=== PATIENT | female | born 1980 | race Caucasian/White ===

== ENCOUNTER 2023-08-21 13:29 | Emergency (ER) | payer MEDICAID, SELFPAY ==
--- NOTE | 2023-08-21 13:30 | DI.RAD_ITS ---
Exam(s) XR THUMB LT EXAM: XR THUMB LT EXAM DATE/TIME: CLINICAL HISTORY: fall, pain. TECHNIQUE: 2D digital imaging was performed of the left finger. Three views were obtained. PA/AP, oblique, and lateral views were obtained. COMPARISON: None. FINDINGS: BONES: No acute fracture is present. No bony destructive lesion is seen. JOINTS: No dislocation is present. SOFT TISSUE: Normal. IMPRESSION: No evidence of acute fracture or dislocation. DATA REPOSITORY: RADIATION DOSE DELIVERED:
[2023-08-21 13:35] VITALS: BP 95/57; PULSE 61; RESP 18; TEMP 37; O2SAT 100
--- NOTE | 2023-08-21 13:41 | ED.GENADUL_ITS ---
Discharge Plan Disposition Patient Disposition: Home Condition: Stable Discharge Details Clinical Impression: Contusion of left thumb Primary Care Provider: Unknown,Unknown ED Provider: Moris Solomon Home Meds and New Rx's Prescriptions: No Action No Known Home Meds Discharge Instructions Instructions: Contusion in Adults (ED) Additional Instructions: if pain is not improving within a week follow-up with your primary care provider wear the splint as needed for comfort Return to the emergency department if you are having severe worsening pain or feel more ill. HPI General Mode of arrival: ambulatory . Date/Time Provider Initiated Documentation: 08/21/23 13:38 . Limitations to Documentation: no limitations . Information obtained by: patient . History of Present Illness 43 year old F presents to the emergency department with the chief complaint of left thumb injury, described as moderate, Quality is described as aching, and is localized to the left and upper extremity. Patient reports no radiation. Patient started experiencing this hour(s) (1) and it has been constant. No relieving factors improve symptom(s), No exacerbating factors reported . Patient notes no other symptoms.. Patient did receive the following treatments prior to arrival, none Related Data Home Medications Medication Instructions Recorded Confirmed Unknown [No Known Home Meds] 08/21/23 08/21/23 Allergies Allergy/AdvReac Type Severity Reaction Status Date / Time latex Allergy Unknown SKIN RASH Unverified 08/21/23 13:38 General Stated Complaint: Orthopedic MARITZA: 4 Review of Systems All systems reviewed & are unremarkable except as noted in HPI and below Constitutional Constitutional: Denies chills, Denies fever(s) and Denies weakness Cardiovascular Cardiovascular: Denies chest pain and Denies dyspnea Respiratory Respiratory: Denies cough and Denies dyspnea Gastrointestinal Gastrointestinal: Denies abdominal pain, Denies nausea and Denies vomiting Musculoskeletal Musculoskeletal: Denies joint swelling Neurologic Neurologic: Denies weakness Exam Const General: no acute distress Orientation: alert HENMT Head: normal to inspection Ears: external ears normal General nose exam: external nose normal Mouth: moist mucous membranes Eyes General: appearance normal, both eyes and all related structures Neck Neck: normal visual inspection Resp Effort & Inspection: normal respiratory effort and able to speak in complete sentences Cardio Rate: regular rate Skin General skin exam: no rashes or lesions noted Neuro General: patient alert and patient oriented x3 Extrem General: full ROM and capillary refill normal Psych Mental Status: mental status grossly normal Course Vital Signs Vital signs: Vital Signs Temperature 37.0 C 08/21/23 13:35 Pulse 61 08/21/23 13:35 Respiratory Rate 18 08/21/23 13:35 Blood Pressure 95/57 L 08/21/23 13:35 Pulse Oximetry 100 08/21/23 13:35 Temperature 37.0 C 08/21/23 13:35 Pulse 61 08/21/23 13:35 Respiratory Rate 18 08/21/23 13:35 Blood Pressure 95/57 L 08/21/23 13:35 Pulse Oximetry 100 08/21/23 13:35 Medical Decision Making 43-year-old female who denies any significant past medical history comes in with left thumb injury. She says she was holding a heavy power saw and slipped on ice in the side landed on her left thumb. He denies hitting her head or loss of consciousness. Has no headaches, neck pain, back pain, chest or abdomen pain. She localizes the pain to the distal left thumb has some swelling, no subungual hematoma currently. Has full range of motion of the thumb, normal sensation and cap refill. Has no tenderness elsewhere in the hand and no pain or tenderness in the wrist. Suspect contusion but will obtain x-rays to evaluate for fracture. Differential Diagnosis Differential Diagnosis: Fracture, contusion Imaging Data Radiologic Study: Attestation: I personally reviewed and interpreted this imaging study as follows: Imaging: X-Ray Radiologist's impression: No acute findings Quality:SDOH Health Related Social Needs: No Data to Display PFSH All Active Problems (Updated 08/21/23 @ 15:00 by Moris Solomon MD) Contusion of left thumb (Acute) Social History Smoking/Tobacco Use Status: Never Smoking risk assessment performed?: Yes Substance use type: does not use Housing: house Do you feel safe at home: Yes Do you feel safe in your relationship?: Yes
--- NOTE | 2023-08-21 15:18 | DI.VRAD_ITS ---
PROCEDURE INFORMATION: Exam: XR Left Finger(s) Exam date and time: 08/21/2023 2:25 PM Age: 43 years old Clinical indication: Other: Fall, pain TECHNIQUE: Imaging protocol: Radiologic exam of the left fingers. Views: Minimum 2 views. COMPARISON: No relevant prior studies available. FINDINGS: Bones/joints: Normal. No acute fracture or dislocation. Soft tissues: There is soft tissue swelling noted. IMPRESSION: No acute fracture or dislocation. Dictated and Authenticated by: Caroline Reddy MD. Ordering:CLAUDIA Subramanian MD
== END 2023-08-21 15:50 | disposition home or self-care (01) ==
PROVIDERS: Emergency Provider Emergency Medicine
DX: W00.0XXA Fall on same level due to ice and snow, initial encounter; S60.012A Contusion of left thumb without damage to nail, initial encounter
CPT/HCPCS: 29125; 99283; 73140; 99284

== ENCOUNTER 2024-01-27 17:50 | Emergency (ER) | payer MEDICAID, SELFPAY ==
[2024-01-27 17:55] VITALS: BP 111/75; PULSE 87; RESP 20; TEMP 38.5; O2SAT 93
[2024-01-27 18:13] VITALS: BP 111/75; PULSE 87; RESP 20; TEMP 38.5; O2SAT 93
--- NOTE | 2024-01-27 18:15 | DI.RAD_ITS ---
Exam(s) XR CHEST 2V PA LATERAL EXAM: XR CHEST 2V PA LATERAL CLINICAL HISTORY: cough, fever, sob. TECHNIQUE: 2D digital imaging was performed. COMPARISON: No exams were available for comparison FINDINGS: 2 views: Heart size is normal. The mediastinum is not widened. There is infiltrate in the right lower lobe. Left lung is clear. There are no pleural effusions IMPRESSION: Significant right lower lobe infiltrate. DATA REPOSITORY: RADIATION DOSE DELIVERED:
[2024-01-27 19:15] LABS: COVID-19 PCR Negative (Negative); Influenza A PCR Negative (Negative); Influenza B PCR Negative (Negative); RSV PCR Negative (Negative)
[2024-01-27 19:19] LABS: Source NASOPHARYNX
[2024-01-27] MEDS: ACETAMINOPHEN 1,000 MG/100 ML BTL 400 MG IVPB (19:38)
[2024-01-27 19:39] LABS: Lactate 0.7 mmol/L (0.6-1.4)
[2024-01-27] MEDS: predniSONE 20 MG TAB 40 MG PO (19:39)
[2024-01-27] MEDS: Albuterol/Ipratropium 3 ML UPD VIAL UPD (19:39)
[2024-01-27 19:40] LABS: Abs Immature Grans 0.04 10^3/uL (0.0-0.06); Absolute Basophil Count 0.02 10^3/uL (0.0-0.2); Absolute Eosinophil Count 0.03 10^3/uL (0.0-0.7); Absolute Lymphocyte Count 0.58 10^3/uL (1.2-3.4); Absolute Monocyte Count 0.42 10^3/uL (0.1-0.8); Absolute Neutrophil Count 6.22 10^3/uL (1.2-6.7); Basophils % 0.3 %; Eosinophils % 0.4 %; HCT 35.2 % (36.0-46.0); HGB 11.7 g/dL (11.2-15.7); Immature Grans % 0.5 %; Lymphocytes % 7.9 %; MCH 26.7 pg (27.0-33.0); MCHC 33.2 % (32.0-36.0); MCV 80 fL (80-95); Monocytes % 5.7 %; Neutrophils % 85.2 %; Platelet Count 228 10^3/uL (130-400); RBC 4.38 10^6/uL (3.93-5.22); RDW 12.3 % (11.7-14.6); RDW-SD 35.8 fL; WBC 7.31 10^3/uL (4.4-10.8)
--- NOTE | 2024-01-27 19:42 | DI.VRAD_ITS ---
PROCEDURE INFORMATION: Exam: XR Chest Exam date and time: 01/27/2024 7:08 PM Age: 43 years old Clinical indication: Cough and fever and shortness of breath; Additional info: Cough, fever, SOB TECHNIQUE: Imaging protocol: Radiologic exam of the chest. Views: 2 views. COMPARISON: No relevant prior studies available. FINDINGS: Lungs: Moderate patchy opacity, predominantly right lower lobe. Pleural spaces: No pleural effusion. No pneumothorax. Heart/Mediastinum: No cardiomegaly. Bones/joints: No acute fracture. IMPRESSION: Right lower lobe pneumonia. Dictated and Authenticated by: Ninoska He MD. Ordering:WENDY Birch MD
[2024-01-27] MEDS: Lactated Ringers 1,000 ML 1000 ML IV (19:59)
[2024-01-27 20:00] LABS: ALT 17 U/L (14-59); AST 15 U/L (15-37); Albumin 3.2 g/dL (3.4-5.0); Alkaline Phosphatase 64 U/L (46-116); Anion Gap 9.8 mmol/L (3-11); BUN 5 mg/dL (7-18); Bilirubin, Total 0.51 mg/dL (0.2-1.0); CO2 27.2 mmol/L (21.0-32.0); CREATININE 0.7 mg/dL (0.55-1.02); Calcium 8.6 mg/dL (8.5-10.1); Chloride 95 mmol/L (98-107); Glucose 89 mg/dL (74-106); Potassium 3.8 mmol/L (3.5-5.1); Sodium 132 mmol/L (136-145); Total Protein 7.5 g/dL (6.4-8.2)
[2024-01-27 20:21] LABS: Bilirubin Negative (Negative); Blood Trace-lysed (Negative); Clarity Clear (Clear); Glucose Negative (Negative); Ketones 40 mg/dL (Negative); Leukocyte Esterase Negative (Negative); Nitrite Negative (Negative); Urobilinogen 0.2 mg/dL (Up to 0.2)
[2024-01-27 20:25] LABS: Bacteria Rare HPF (Negative); C & S Indicated? No; Casts Negative LPF (Negative); Crystals Negative HPF (Negative); Epithelial Cells Moderate HPF (Negative); Mucus Negative (Negative); RBC 0-2 HPF (0-2); WBC Negative HPF (0-5)
[2024-01-27] MEDS: Azithromycin 250 MG TAB 500 MG PO (21:37)
[2024-01-27] MEDS: Albuterol HFA 8 GM 60 PUFF INH IH (21:37)
[2024-01-27] MEDS: Amoxicillin 500 MG CAP 1000 MG PO (21:37)
--- NOTE | 2024-01-27 22:32 | W.ED.GENAD ---
Discharge Plan Disposition Patient Disposition: Home Condition: Stable Discharge Details Clinical Impression: Pneumonia Primary Care Provider: Unknown,Unknown ED Provider: Queta Terry Home Meds and New Rx's Prescriptions: New amoxicillin 500 mg capsule 1,000 mg PO TID 7 Days Qty: 42 0RF azithromycin 250 mg tablet 250 mg PO DAILY 4 Days Qty: 4 0RF Rx Instructions: start on day 2 of therapy Discharge Instructions Instructions: Community-Acquired Pneumonia, Adult (DC) Additional Instructions: Take both the amoxicillin and azithromycin daily, yogurt daily while on antibiotics Ibuprofen 600 mg every 8 hours with food for fever control Use the albuterol, 2 puffs every 4-6 hours Recommendation to establish care with a primary care physician, placed on referral list, please return earlier should your symptoms last longer than 72 hours or worsen in any way HPI General Date/Time Provider Initiated Documentation: 01/27/24 17:53. HPI Narrative: This 43-year-old female presents with coughing, chest congestion, and fever. Patient states her symptoms started approximately 2 weeks ago. She predominately is complaining of respiratory complaints. She started amoxicillin yesterday for report of fluid behind your ears at urgent care. She states she presents today secondary to feeling worse. Denies any calf pain or swelling. Denies any hemoptysis. Denies history of COPD or asthma. Related Data Home Medications ?Medication ?Instructions ?Recorded ?Confirmed amoxicillin 500 mg capsule 1,000 mg (2 x 500 mg) PO TID 7 01/27/24 days #42 caps azithromycin 250 mg tablet 250 mg PO DAILY 4 days #4 tabs 01/27/24 Previous Rx's ?Medication ?Instructions ?Recorded amoxicillin 500 mg capsule 1,000 mg (2 x 500 mg) PO TID 7 01/27/24 days #42 caps azithromycin 250 mg tablet 250 mg PO DAILY 4 days #4 tabs 01/27/24 Allergies Allergy/AdvReac Type Severity Reaction Status Date / Time No Known Allergies Allergy Unverified 01/27/24 18:16 General Stated Complaint: RespSymp MARITZA: 3 Exam Narrative Exam Narrative: Alert and oriented 43-year-old female in no acute distress, no meningismus, pupils equal round reactive to light accommodation, crackles at base of right lung, no respiratory distress, cardiac rate rhythm regular, no abdominal tenderness, no rashes or lesions, no peripheral edema Course Vital Signs Vital signs: Vital Signs Temperature 38.5 C H 01/27/24 17:55 Pulse 87 01/27/24 17:55 Respiratory Rate 20 01/27/24 17:55 Blood Pressure 111/75 01/27/24 17:55 Pulse Oximetry 93 01/27/24 17:55 Temperature 38.5 C H 01/27/24 18:13 Temperature Source Temporal Artery Scan 01/27/24 18:13 Pulse 87 01/27/24 18:13 Respiratory Rate 20 01/27/24 18:13 Respiratory Effort Short of Breath 01/27/24 18:11 Respiratory Depth Normal 01/27/24 18:09 Blood Pressure 111/75 01/27/24 18:13 Blood Pressure Position Sitting 01/27/24 18:13 Pulse Oximetry 93 01/27/24 18:13 Oxygen Delivery Method Room Air 01/27/24 18:13 Oxygen Flow Rate 0 01/27/24 18:13 Lab/Test Results Lab/Test Results: Laboratory Tests Range/Units 01/27/24 01/27/24 01/27/24 18:05 19:30 19:56 WBC (4.4-10.8) 10^3/uL 7.31 RBC (3.93-5.22) 10^6/uL 4.38 Hgb (11.2-15.7) g/dL 11.7 Hct (36.0-46.0) % 35.2 L MCV (80-95) fL 80 MCH (27.0-33.0) pg 26.7 L MCHC (32.0-36.0) % 33.2 RDW (11.7-14.6) % 12.3 Plt Count (130-400) 10^3/uL 228 MPV (8.0-11.0) fL 9.0 Immature Gran % % 0.5 Neutrophils % % 85.2 Lymphocytes % % 7.9 Monocytes % % 5.7 Eosinophils % % 0.4 Basophils % % 0.3 Nucleated RBC % (0.0-0.3) % 0.0 Absolute Neutrophils (1.2-6.7) 10^3/uL 6.22 Absolute Lymphocytes (1.2-3.4) 10^3/uL 0.58 L Absolute Monocytes (0.1-0.8) 10^3/uL 0.42 Absolute Eosinophils (0.0-0.7) 10^3/uL 0.03 Absolute Basophils (0.0-0.2) 10^3/uL 0.02 VBG Lactate (0.6-1.4) mmol/L 0.7 Sodium (136-145) mmol/L 132 L Potassium (3.5-5.1) mmol/L 3.8 Chloride (98-107) mmol/L 95 L Carbon Dioxide (21.0-32.0) mmol/L 27.2 Anion Gap (3-11) mmol/L 9.8 BUN (7-18) mg/dL 5 L Creatinine (0.55-1.02) mg/dL 0.7 Est GFR (CKD-EPI 2020) (mL/min/1.73m2) 109.30 Glucose (74-106) mg/dL 89 Calcium (8.5-10.1) mg/dL 8.6 Total Bilirubin (0.2-1.0) mg/dL 0.51 AST (15-37) U/L 15 ALT (14-59) U/L 17 Alkaline Phosphatase (46-116) U/L 64 Total Protein (6.4-8.2) g/dL 7.5 Albumin (3.4-5.0) g/dL 3.2 L Urine Color (Yellow) Yellow Urine Clarity (Clear) Clear Urine pH (5-8) 6.0 Ur Specific [place] (1.005-1.025) 1.010 Urine Protein (Neg-Trace) mg/dL Trace Urine Ketones (Negative) mg/dL 40 H Urine Blood (Negative) Trace-lysed H Urine Nitrite (Negative) Negative Urine Bilirubin (Negative) Negative Urine Urobilinogen (Up to 0.2) mg/dL 0.2 Ur Leukocyte Esterase (Negative) Negative Urine RBC (0-2) HPF 0-2 Urine WBC (0-5) HPF Negative Ur Epithelial Cells (Negative) HPF Moderate Urine Crystals (Negative) HPF Negative Urine Bacteria (Negative) HPF Rare Urine Casts (Negative) LPF Negative Urine Mucus (Negative) Negative Ur Culture Indicated? No Urine Glucose (Negative) mg/dL Negative COVID-19 Source NASOPHARYNX SARS-CoV-2 (PCR) (Negative) Negative Influenza Type A (PCR) (Negative) Negative Influenza Type B (PCR) (Negative) Negative RSV (PCR) (Negative) Negative Medical Decision Making 43-year-old female presents with report of fever over the course of the past 2 weeks with worsening cough concern regarding persistent fever. Chest x-ray shows right lower lobe infiltrate. Diagnostic labs are reassuring and it is interesting that she does not have leukocytosis. She is feeling improvement after medications and received antipyretics for fever control. Patient will receive amoxicillin and azithromycin for pneumonia and to cover atypicals. She will take amoxicillin 1 g 3 times daily and azithromycin, 500 followed by 250 daily. She will be given an inhaler to use for cough and she will be established with a primary care physician as she does not have 1. She is given very low threshold to return should she have new or worsening complaints discharged home in stable condition with stable vitals Quality:SDOH Health Related Social Needs: No Data to Display PFSH All Active Problems (Updated 01/27/24 @ 21:06 by BHARATHI Olmedo) Pneumonia (Acute) Social History Smoking/Tobacco Use Status: Never Smoking risk assessment performed?: Yes Alcohol Intake: never Drug use: Occasionally Substance use type: marijuana Housing: house Do you feel safe at home: Yes Do you feel safe in your relationship?: Yes
--- NOTE | 2024-01-30 10:12 | NUR.NOTE ---
Patient called about send out labs and if there were any results. They are not done yet. She stated she feels like she is feelig better, but her who was seen at the same time is not. I told her that if she feels that he needs to be seen again to bring him back. Nursing Note:
[2024-01-30 10:44] LABS: Lyme Ab w Rflx to Lyme Confirm Negative (Negative)
[2024-01-31 20:12] LABS: Anaplasma phagocytophilum Negative (Negative); B. miyamotoi PCR Negative (Negative); Babesia divergens/MO-1 Negative (Negative); Babesia duncani Negative (Negative); Babesia microti Negative (Negative); Ehrlichia chaffeensis Negative (Negative); Ehrlichia ewingii/canis Negative (Negative); Ehrlichia muris eauclairensis Negative (Negative)
--- NOTE | 2024-02-03 16:29 | NUR.NOTE ---
Nursing Note: Patient called looking for the results of her labs, informed her that everything came back negative. Sodium was a little low but nothing too crazy. Pt notified of this. She thanked me and stated that she is currently working on getting a primary and was happy I could answer her questions
== END 2024-01-27 21:38 | disposition home or self-care (01) ==
PROVIDERS: Emergency Provider Physician Assistant
DX: J18.9 Pneumonia, unspecified organism (principal)
CPT/HCPCS: 80053; 87040; 87637; 87798; 94640; 96361; 96365; 99284; 71046; 81003; 81015; 83605; 85025; 86618; J0131; J7512; J7620